=== PATIENT | male | born 1990 | race Hispanic/Latino ===

== ENCOUNTER 2017-10-16 20:24 | Emergency (ER) | payer OTHER ==
[2017-10-16] MEDS ORDERED: Adacel (T-DAP) 0.5 ML VIAL ONE (22:32)
== END 2017-10-16 22:55 | disposition home or self-care (01) ==
LOC: ERS 20:24
DX: S00.431A Contusion of right ear, initial encounter (principal); W22.8XXA Striking against or struck by other objects, initial encounter
CPT/HCPCS: 10060; 90471; 90715

== ENCOUNTER 2017-12-18 12:16 | Outpatient (CLI) | payer OTHER | END 2017-12-18 12:17 | disposition home or self-care (01) | LOC: BICULT 12:16 | PROVIDERS: ATTEND Family Medicine | DX: N50.9 Disorder of male genital organs, unspecified (principal); I86.1 Scrotal varices; N50.3 Cyst of epididymis | CPT/HCPCS: 76870; 93976 ==